=== PATIENT | female | born 1960 | race Caucasian/White ===

== ENCOUNTER → 2016-09-08 | Outpatient (CLI) | payer BC, MEDICARE ==
[~2016-09-08] MED LIST: ADVAIR IH; AMOXICILLIN 50500 MG PO; BACTRIM DS 8001 TAB PO; BENAZEPRIL PO; CELEXA40 MG PO; CITALOPRAM HYDR20 MG PO; DEXILANT60 MG PO; DIOVAN80 M1 PO; FLONASE NASAL S16 GM NS; FLONASE0.05 MG/AC NS; HUMALOG100 U/ML SC; HUMALOG100 U/ML SQ; INSULIN HUMA100 U/ML IJ; LANTUS SQ; LANTUS100 U/ML SC; LANTUS100 U/ML SQ; LEVAQUIN 750MG750 MG PO; LEXAPRO20 MG PO; NEXIUM40 MG PO; NORCO 325 MG-7.1 TAB PO; NOVOLOG 100U100 U/M1 SC; PRILOSEC PO; RT ADVAIR 228 DISKUS IH; SINGULAIR 110 MG/TAB PO; SINGULAIR10 MG PO; TYLENOL 325MG325 MG PO; VITAMIN D 50,1.25 MG PO; XOPENEX 3 ML3 M1 IH; ZITHROMAX 250M250 MG PO; ZOCOR40 MG PO
== END ==
LOC: ZCOL.LAB 14:24
DX: Z11.2 Encounter for screening for other bacterial diseases (principal)

== ENCOUNTER → 2017-03-16 | Outpatient (CLI) | payer BC, MEDICARE | LOC: SUN.DIA 09:17 | DX: E10.21 Type 1 diabetes mellitus with diabetic nephropathy (principal); Z79.4 Long term (current) use of insulin; E78.5 Hyperlipidemia, unspecified; Z71.3 Dietary counseling and surveillance | CPT/HCPCS: G0108 ==

== ENCOUNTER → 2017-10-20 | Outpatient (CLI) | payer BC, MEDICARE | LOC: COL.RAD 16:30 | DX: R94.6 Abnormal results of thyroid function studies (principal) ==

== ENCOUNTER → 2018-01-11 | Outpatient (CLI) | payer BC, MEDICARE | LOC: ZCOL.LAB 16:13 | DX: Z01.812 Encounter for preprocedural laboratory examination (principal); Z86.14 Personal history of Methicillin resistant Staphylococcus aureus infection ==

== ENCOUNTER → 2020-02-14 | Outpatient (CLI) | payer BC, MEDICARE | LOC: ZCOL.LAB 16:29 | DX: J02.9 Acute pharyngitis, unspecified (principal); Z20.828 Contact with and (suspected) exposure to other viral communicable diseases ==